=== PATIENT | female | born 1960 | race Caucasian/White ===

== ENCOUNTER 2025-07-16 07:38 | Emergency (ER) | payer BC, SELFPAY ==
[2025-07-16 07:44] VITALS: BP 136/73
[2025-07-16 07:45] VITALS: BP 136/73; BMI 40.5
--- NOTE | 2025-07-16 07:48 | ED.GENMED ---
History of Present Illness
General
Chief Complaint: Fall
Source: patient
Exam Limitations: none
Time Seen by Provider: 07/16/25 07:45
Nursing documentation reviewed up to this point in time: agreed with
History of Present Illness
History of Present Illness:
64 yo female w h/o Gastric sleeve, hysterectomy, hernia repair, Cholecystectomy, HTN, HLD, IDDM, endometrial CA dx 2 yrs ago, chemo and radiation tx, now with 'one node they are keeping an eye on.' Presents for near syncope, fall, facial injuries,
laceration tongue, pain 'in my face.'
Got up to go to bathroom, got dizzy and fell forward striking face on floor. Crawled to the bed but couldn't get up, daughter called EMS and helped her up. Pt has balance problems and is suppose to use a walker. She admits she didn't use her walker,
she holds onto things for balance. She states today's fall was different than her balance problem. States she got dizzy 'I think it's because I've been so stuffy' in sinuses and URI symptoms.
Denies neck or back pain, back pain, headache. Denies pain in extremities. Denies CP, SOB, abd pain, feels a little nauseous, no vomiting. Denies diarrhea, constipation. Denies feeling dizzy now.
Family members at home have had coughs, not feeling well.
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 Last fall was 2 years ago and had 'increased fluid in the brain.'
Past History
Past History
ED Past Medical History: Cancer, HTN, Hypercholesterolemia and IDDM
ED Past Surgical History: Brain and Gynecological
Social History
Tobacco: Non-smoker
Alcohol: None
Drug: None
Personal:
Living: with family
Phy Exam
Physical Exam
Physical Exam:
GENERAL: No acute distress. A&Ox3.
CONSTITUTIONAL: Afebrile.
EYES: clear, conjunctivae normal
ENMT: moist mucus membranes, Pharynx nl, laceration tongue. Minimal bleeding. Nose swollen, tender
RESPIRATORY: Regular respirations, nonlabored, lungs clear.
CARDIOVASCULAR: Regular rate and rhythm, no murmurs, no rubs. Tachycardic HR 110 sinus on bedside monitor
GI: Soft, nontender, normal BS
MUSCULOSKELETAL: Moves with ease. Well perfused. No edema
SKIN: Warm, dry, pink
PSYCH: Normal mood and affect. Well kept, interactive and appropriate
NEUROLOGIC: Awake, alert and oriented. CN 2-12 intact. Speech clear, strength equal throughout, No focal neurological deficits
Course
Orders/Labs/Results
Orders:
Orders
07/16/25 07:46
0.9% Sodium Chloride 1000 ml [Nss] 1,000 ml IV BOLUS
07/16/25 07:47
Electrocardiogram (*1) Urgent
Reason for Study: Vertigo / Dizzy
EKG- Treatment ONCE
CR Chest - 2 Views Urgent
Comment:
Reason For Exam: cough
07/16/25 07:51
Facial Bones wo Contrast CT [CT Facial Bones W/o Iv Contras] Urgent
Comment:
Reason For Exam: near syncope, fall, hit face, lac tongue,nose pain
COVID-19 Antigen Urgent
Source: Nasal Swab
Complete Blood Count/With Diff Urgent
Comprehensive Metabolic Panel Urgent
Influenza A+B Rapid Molecular Urgent
JORDON Source: Nasal Swab
Specimen Description:
07/16/25 07:55
Ondansetron Injectable [Zofran] 4 mg IV NOW STA
07/16/25 07:56
Ketorolac [Toradol] 15 mg .ROUTE .STK-MED ONE
07/16/25 07:57
Ketorolac [Toradol] 15 mg IV NOW STA
07/16/25 08:17
CT Head W/o Iv Contrast Urgent
Comment:
Reason For Exam: dizzy, fall, has shunt, craniotomy for mets CA
07/16/25 10:45
Lidocaine/Epinephrine/Tetracai [Let Topical Anesthetic Gel] 3 ml TOPICAL NOW STA
07/16/25 10:47
Lidocaine/Epinephrine/Tetracai [Let Topical Anesthetic Gel] 3 ml TOPICAL NOW STA
07/16/25 12:12
Case Management Consult ONCE
Case Management Consult: Discharge Planning
Comment: any way P/T at home can be arranged for this patient? Do we have to have our P/T evaluate first? Let
me know if its possible before I consult anyone please.
Abnormal Lab Results
07/16/25
07:51
MCHC 32.5 L g/dL
(33.0-37.0)
Absolute Monos (auto) 0.8 H 10^3/uL
(0.1-0.6)
Lymphocytes % 16.8 L %
(20.5-51.1)
Sodium 131 L mmol/L
(135-145)
Glucose 310 H mg/dl
(70-99)
Alkaline Phosphatase 147 H U/L
(38-126)
07/16/25 07:51
07/16/25 07:51
Vital Signs
Initial and Last Documented VS:
Initial Vital Signs
BP
136/73
07/16/25 07:44
Last Documented Vital Signs
Temp Pulse Resp BP Pulse Ox
99.6 F 92 20 141/79 94
07/16/25 07:45 07/16/25 10:25 07/16/25 10:25 07/16/25 10:25 07/16/25 10:25
Procedures
Laceration Closure
anterior middle tongue:
Size of Wound in cm: 1
Description of Wound Edges: sharp
Preparation: other (H2O2 solution)
Anesthesia: Topical-LET
Type of Closure: single layer closure
Skin Closure Material: 5-0 vicryl
Number of sutures: 2
MDM/Problems Addressed
Differential Diagnosis Includes:
facial fracture, dehydration, Covid, Flu, PNA, hypoglycemia, increase ICP from fluid, metastatic disease
MDM/Problems Addressed:
64 yo female w h/o Gastric sleeve, hysterectomy, hernia repair, Cholecystectomy, HTN, HLD, IDDM, endometrial CA dx 2 yrs ago, chemo and radiation tx, now with 'one node they are keeping an eye on.' Presents for near syncope, fall, facial injuries,
laceration tongue, pain 'in my face.'
Got up to go to bathroom, got dizzy and fell forward striking face on floor. Crawled to the bed but couldn't get up, daughter called EMS and helped her up. Pt has balance problems and is suppose to use a walker. She admits she didn't use her walker,
she holds onto things for balance. She states today's fall was different than her balance problem. States she got dizzy 'I think it's because I've been so stuffy' in sinuses and URI symptoms.
Denies neck or back pain, back pain, headache. Denies pain in extremities. Denies CP, SOB, abd pain, feels a little nauseous, no vomiting. Denies diarrhea, constipation. Denies feeling dizzy now.
Family members including young grandchildren at home have had coughs, one with diarrhea, all not feeling well.
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 Last fall was 2 years ago and had 'increased fluid in the brain.'
Alert, NAD, facial pain.
CBC normal
Influenza A & B neg
CMP with no clinically significant abnormality
Covid neg
CT facial bones, head radiology, CXR reports read: No acute abnormalities. Copies of report given to family.
CXR: No acute abnormality
Pt informed of results.
10:45 a.m.
Pt sitting up on edge of bed, steady, feels 'a little dizzy' notable sinus stuffiness. Right nostril is clear of blood, small amount blood in left nostril
Tongue with 1 cm laceration cleansed with H202 solution. Two absorbable sutures placed
Pt OOB and ambulating at baseline with walker, little unsteady but independently
Pt blood sugar 310 offered to give insulin here, pt wants to get it at home, daughter Brigitte here knows to use sliding scale and they have instructions at home on how to use it. Per daughter, pt has not been consistent using her insulin, something
the family will address.
Daughter asking for P/T at home, pt has no primary doctor. Info sent to PCP hotline.
CM consult in, Jp Ruben in, she cannot do anything for P/T as pt has no PCP.
*Pulse Oximetry
SaO2: 91
Patient hypoxic: no
*Critical Care Note
Total Time (30-74mins, 75-104mins- exclusive of procedures): Not Applicable
ED Attending Note
-
Portions of this chart may have been created with voice recognition software.� Occasional wrong word or��sound alike� substitutions may have occurred due to the inherent limitations of voice recognition software.
Discharge Plan
Departure
Patient Disposition: Home (Routine Discharge)
Date of Disposition: 07/16/25
Time of Disposition: 11:24
Patient with high blood pressure during this ER visit?: No
Condition: Good
Discharge Problem:
Fall, Dizziness, Contusion of face, Laceration of tongue, Viral upper respiratory illness
Instructions: Head Injury in Adults (DC), Contusion (DC), Preventing falls in adults, Wound Inside The Mouth
Prescriptions:
No Action
cyanocobalamin (vitamin B-12) 1,000 MCG tablet
3,000 mcg PO DAILY
ferrous sulfate [FeroSul] 325 MG tablet
650 mg PO DAILY
B-complex with vitamin C 1 CAPLET tablet
1 cap PO BID
biotin 1 MG tablet
1 mg PO DAILY
Lactobac 2-Bifido 1-S. therm [High Potency Probiotic] 1 CAP capsule
1 cap PO DAILY
Berberine 200 MG Capsule
2 cap PO BID
Theracurmin Hp 1 CAP Capsule
1 cap PO BID
Ultra Pure Fish Oil 5 ML Liquid
5 ml PO DAILY
Batch Sleep Formula 1 SPRAY Liquid
1 spray PO HSPRN PRN (Reason: SLEEP)
Zuhair Mag Plus 1 CAPSULE Capsule
1 cap PO BID
Magnesium Glycinate Malate 1 CAP Capsule
2 cap PO HS
Vitamin D With K2-7 1 CAPSULE Capsule
1 cap PO DAILY
aspirin 81 MG tablet,delayed release (DR/EC)
81 mg PO DAILY
sennosides [senna] 1 TABLET tablet
2 tab PO HS 0RF
Referrals:
Your [facility] Neuologist [Other] - Keep scheduled appt
UNKNOWN - PT DOES,NOT KNOW [Family Provider]
Activity Restrictions/Additional Instructions:
As we discussed, your workup here shows nothing worrisome.
Take your CAT scan disc and copies of all your results to your doctors office on 07/20 appointment.
Tylenol or ibuprofen as needed for pain.
Cold compress to the face 20 minutes off and on is much as you can in the next 2 days to minimize bruising and swelling.
The sutures in your tongue will absorb.
Rinse and spit with tap water after eating or drinking anything.
Signs of infection are increasing redness, swelling, pus or foul drainage from the tongue, fever and if these occur seek medical care or return here immediately.
I sent your contact information to our PCP hotline, someone should be calling you within the next 2 days to discuss a primary care provider.
Interventions
Interventions:
*Risk Screen - Suicide Last Done: 07/16/25 07:45
*General Assessment Last Done: 07/16/25 07:45
*Neglect/Abuse Screening Last Done: 07/16/25 07:45
*ED COVID-19 Vaccine History Last Done: 07/16/25 07:45
*ED Influenza Vaccine History Last Done: 07/16/25 07:45
[facility] Fall Risk Assessment Tool Last Done: 07/16/25 07:46
*Nursing Disposition Last Done: 07/16/25 12:32
ED-Musculoskeletal Assessment Last Done: 07/16/25 07:45
ED- Neurological Assessment Last Done: 07/16/25 07:45
ED-Skin Assessment Last Done: 07/16/25 07:45
Discharge Date and Time
Discharge Date/Time: 07/16/25 12:33
Print Language: PERSIAN
[2025-07-16] MEDS: NSS 1000 IV (07:58)
[2025-07-16] MEDS: ZOFRAN 4 MG IV (07:58)
[2025-07-16] MEDS: TORADOL 15 MG IV (07:58)
[2025-07-16 08:09] LABS: Hematocrit 45.2 % (37.0-47.0); Hemoglobin 14.7 g/dL (12.0-16.0); Mean Corp Hgb Conc. 32.5 g/dL (33.0-37.0); Mean Corpuscular Volume 86.1 fL (81.0-99.0); Nucleated Red Blood Cells % 0 %; Platelet Count 216 10^3/uL (130-400); Red Cell Dist. Width 13.0 % (11.5-14.5)
[2025-07-16 08:21] LABS: ALT (SGPT) 19 U/L (0-35); AST (SGOT) 18 U/L (14-36); Albumin 4.1 g/dl (3.5-5.0); Alkaline Phosphatase 147 U/L (38-126); Blood Urea Nitrogen 14 mg/dl (7-17); Calcium 9.2 mg/dl (8.4-10.2); Carbon Dioxide 22 mmol/L (22-30); Chloride 100 mmol/L (98-107); Estimated Creatinine Clearance 104 ml/min; Glucose 310 mg/dl (70-99); Potassium 4.5 mmol/L (3.5-5.1); Sodium 131 mmol/L (135-145); Total Protein 7.3 g/dl (6.3-8.2); eGFR > 60.00
[2025-07-16 08:29] LABS: COVID-19 Antigen Negative (Negative)
[2025-07-16 09:00] VITALS: BP 142/92
[2025-07-16 10:20] VITALS: BP 141/79
--- NOTE | 2025-07-16 10:24 | EDRN ---
the pt is sitting on the side of the bed and swishing her mouth out with mouthwash without alcohol and hydrogen peroxide mixture that this RN prepared for the pt, this RN also cleaned the pts b/l nostrils due to nose bleeding with swabs dipped in
hydrogen peroxide
[2025-07-16 10:25] VITALS: BP 141/79
[2025-07-16] MEDS: LET TOPICAL ANESTHETIC GEL 3 ML TOPICAL (10:51)
--- NOTE | 2025-07-16 12:24 | CM ---
Chart reviewed and consult received
Spoke with Neema ORLANDO that since there is no PCP , HHC cannot be ordered.
Neema ORLANDO notified the family and patient about this
no other CM needs
== END 2025-07-16 12:33 | disposition home or self-care (01) ==
LOC: EMR 07:38
PROVIDERS: Registered Nurse; EMERGENCY PHYSICIAN Emergency Medicine
DX: S01.512A Laceration without foreign body of oral cavity, initial encounter (principal); J39.9 Disease of upper respiratory tract, unspecified; W19.XXXA Unspecified fall, initial encounter; I10 Essential (primary) hypertension; E78.00 Pure hypercholesterolemia, unspecified; E11.9 Type 2 diabetes mellitus without complications; R42 Dizziness and giddiness; Z85.42 Personal history of malignant neoplasm of other parts of uterus; Z90.49 Acquired absence of other specified parts of digestive tract; Z90.710 Acquired absence of both cervix and uterus
CPT/HCPCS: 99284; 12011; 96374; 96375; 96361; 70450; 70486; 71046; 80053; 85025; 87502; 87811; 93005